=== PATIENT | male | born 1985 | race Caucasian/White ===

== ENCOUNTER 2023-04-08 08:17 | Emergency (ER) | payer BC ==
[2023-04-08] MEDS ORDERED: Apixaban 5 MG Tab PO ONE ×2 (10:32→10:51)
== END 2023-04-08 11:15 | disposition home or self-care (01) ==
LOC: JD.ED 08:17
DX: I82.401 Acute embolism and thrombosis of unspecified deep veins of right lower extremity (principal); I10 Essential (primary) hypertension; F17.210 Nicotine dependence, cigarettes, uncomplicated; Z86.16 Personal history of COVID-19; Z79.01 Long term (current) use of anticoagulants; Z91.048 Other nonmedicinal substance allergy status; Z88.6 Allergy status to analgesic agent
CPT/HCPCS: 93971; 99283; A9270